=== PATIENT | male | born 1990 | race Caucasian/White ===

== ENCOUNTER → 2018-03-31 13:16 | Outpatient (CLI) | payer BC, SELFPAY ==
--- NOTE | 2018-03-31 13:18 | NM_ITS ---
NM hepatobiliary wo pharm HISTORY: Right upper quadrant pain ITS.REASON: upper quad pain ORDERING PHYSICIAN: Zach Olvera MD PATIENT AGE: 27 years COMPARISON: 03/28/2018 DOSE: 8.17 mCi technetium Choletec IV Fatty meal with ensure FINDINGS: Homogeneous activity is present within the hepatic parenchyma. Activity is present in the gallbladder by 10 minutes. Activity is present in the small bowel by 45 minutes. The gallbladder ejection fraction is calculated to be 23%. No pain reported with the fatty meal IMPRESSION: 1. No evidence of common or cystic duct obstruction. 2. Slightly low gallbladder ejection fraction. Please correlate with patient's symptoms for possible gallbladder dyskinesia
--- NOTE | 2018-03-31 13:33 | HMH.ITSHM ---
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 []OMPERAZOLE
== END ==
PROVIDERS: PCP Internal Medicine; Visit Provider Surgery
DX: K82.9 Disease of gallbladder, unspecified (principal)
CPT/HCPCS: 78226; A9537

== ENCOUNTER → 2018-04-04 15:39 | Outpatient (CLI) | payer BC, SELFPAY ==
[2018-04-04 16:41] LABS: Basophils # 0.1 K/mm3 (0-0.2); Basophils % 1.1 % (0.1-2.0); Eosinophils # 0.6 K/mm3 (0.0-0.4); Hematocrit 44.4 % (42.0-52.0); Hemoglobin 14.4 g/dL (14.1-18.0); Lymphocytes # 2.6 K/mm3 (0.7-4.5); Mean Corpuscular HGB Conc 32.4 g/dL (31.8-35.4); Mean Corpuscular Hemoglobin 28.8 pg (27.0-31.2); Mean Platelet Volume 6.8 fl (7.4-10.4); Monocytes # 0.4 K/mm3 (0.1-1.0); Monocytes % 5.3 % (1.7-9.3); Neutrophils # 4.2 K/mm3 (1.8-7.8); Neutrophils % 52.6 % (37.0-80.0); Platelet Count 296 K/mm3 (142-424); Red Blood Count 4.99 M/mm3 (4.60-6.20); Red Cell Distribution Width 13.3 % (11.5-17.5)
[2018-04-04 16:49] LABS: Alanine Aminotransferase 27 U/L (12-78); Albumin Level 4.1 gm/dL (3.4-5.0); Albumin/Globulin Ratio 1.2 (1.1-1.8); Alkaline Phosphatase 60 U/L (46-116); Anion Gap 14.7 mEq/L (5-15); Aspartate Amino Transferase 9 U/L (15-37); Bilirubin,Total 0.2 mg/dL (0.2-1.0); Blood Urea Nitrogen 10 mg/dL (7-18); Carbon Dioxide 27 mmol/L (21.0-32.0); Chloride 104 mmol/L (98-107); Estimated Glomerular Filt Rate 89 ml/min (>60); GFR (African American) 108 ML/MIN (>60); Globulin 3.4 gm/dl (1.3-3.2); Glucose 92 mg/dL (74-106); Potassium 4.7 mmoL/L (3.5-5.1); Sodium 141 mmol/L (136-145); Total Protein,Serum 7.5 gm/dL (6.4-8.2)
== END ==
PROVIDERS: Visit Provider Surgery
DX: K82.9 Disease of gallbladder, unspecified (principal)
CPT/HCPCS: 80053; 85025

== ENCOUNTER 2021-04-19 19:19 | Emergency (ER) | payer SELFPAY ==
[2021-04-19 19:30] VITALS: BP 134/81; PULSE 102; RESP 18; TEMP 37.1; O2SAT 98; BMI 32.5
[2021-04-19 20:50] LABS: Alanine Aminotransferase 30 U/L (12-78); Albumin Level 4.9 g/dl (3.5-5.0); Albumin/Globulin Ratio 1.5 (1.1-1.8); Alkaline Phosphatase 49 U/L (38-126); Aspartate Amino Transferase 30 U/L (17-59); Bilirubin,Total 0.6 mg/dl (0.2-1.3); Blood Urea Nitrogen 13 mg/dl (9-20); Calcium 9.7 mg/dl (8.4-10.2); Carbon Dioxide 29 mmol/L (22.0-30.0); Chloride 101 mmol/L (98-107); Creatinine Clearance Estimated 151 mL/min (50-200); Estimated Glomerular Filt Rate 87 ml/min (>60); GFR (African American) 105 ML/MIN (>60); Globulin 3.3 g/dL (1.3-3.2); Glucose 95 mg/dl (74-100); Sodium 139 mmol/L (136-145); Total Protein,Serum 8.2 g/dl (6.3-8.2)
[2021-04-19 20:55] LABS: C-Reactive Protein 5.6 mg/L (0-4)
[2021-04-19 21:09] LABS: Basophils # 0.2 K/mm3 (0-0.2); Eosinophils # 0.4 K/mm3 (0.0-0.4); Hematocrit 52.7 % (42.0-52.0); Hemoglobin 16.9 g/dL (14.1-18.0); Lymphocytes # 1.6 K/mm3 (0.7-4.5); Lymphocytes % 10.7 % (10-50); Mean Corpuscular HGB Conc 32.1 g/dL (31.8-35.4); Mean Corpuscular Hemoglobin 29.5 pg (27.0-31.2); Mean Corpuscular Volume 91.8 fl (80-94); Mean Platelet Volume 8.2 fl (7.4-10.4); Monocytes # 0.6 K/mm3 (0.1-1.0); Neutrophils % 81.3 % (37.0-80.0); Platelet Count 286 K/mm3 (142-424); Procalcitonin 0.088 ng/mL (0.0-2.0); Red Blood Count 5.75 M/mm3 (4.60-6.20); Red Cell Distribution Width 13.8 % (11.5-17.5); White Blood Count 14.7 K/mm3 (4.8-10.8)
--- NOTE | 2021-04-19 21:20 | HMH.EDNVD ---
ED Disposition Clinical Impression: Enteritis Disposition: Home, Self-Care Condition on Discharge: Good Instructions: DI for Diarrhea and Traveler's Diarrhea -- Adult Additional Instructions: fluids and see pcp for follow up Prescriptions: ondansetron HCL [Zofran 4mg Tab] 4 mg PO TID #30 tab Transmission Status: Pending to [facility] Referrals: Travis Bagley [Primary Care Provider] - - Critical Care Critical Care Time: No Attestation: On 04/19/21, the high probability of a clinically significant, sudden or life threatening deterioration of the following system(s) required my full and direct attention, intervention and personal management. The time I documented below is in addition to time spent performing reported procedures but includes the following listed in this critical care notation. Medical Decision Making - Medical Records Medical records reviewed: Yes: I reviewed the patient's medical records. - Juan Inquiry Pt receiving controlled substance: No Vital Signs: 04/19/21 19:30 Temperature 98.8 F Temperature Source Oral Pulse Rate [Left] 102 H Respiratory Rate 18 Blood Pressure [Right Arm] 134/81 Blood Pressure Mean [Right Arm] 98 02 Sat by Pulse Oximetry 98 Oxygen Delivery Method Room Air - Lab Data Lab results reviewed: Yes: I reviewed the patient's lab results. Lab Results 04/19/21 19:29: WBC 14.7 H, RBC 5.75, Hgb 16.9, Hct 52.7 H, MCV 91.8, MCH 29.5, MCHC 32.1, RDW 13.8, Plt Count 286, MPV 8.2, Neut % (Auto) 81.3 H, Lymph % (Auto) 10.7, [place] % (Auto) 4.0, Eos % (Auto) 3.0, Baso % (Auto) 1.0, Neut # (Auto) 12.0 H, Lymph # (Auto) 1.6, [place] # (Auto) 0.6, Eos # (Auto) 0.4, Baso # (Auto) 0.2, ESR 4 04/19/21 19:29: Sodium 139, Potassium 4.0, Chloride 101, Carbon Dioxide 29, Anion Gap 13.0, BUN 13, Creatinine 1.00, Estimated Creat Clear 151, Estimated GFR 87, Est GFR ( Amer) 105, Glucose 95, Calcium 9.7, Total Bilirubin 0.6, AST 30, ALT 30, Alkaline Phosphatase 49, C-Reactive Protein 5.6 H, Total Protein 8.2, Albumin 4.9, Globulin 3.3 H, Albumin/Globulin Ratio 1.5, Procalcitonin 0.088 Result diagrams: 04/19/21 19:29 04/19/21 19:29 Orders (Tests/Meds): ED MEDICATIONS Generic Name Dose Route Start Last Admin Trade Name Freq PRN Reason Stop Dose Admin Lactated Ringer's 1,000 mls @ 999 mls/hr 04/19/21 19:30 04/19/21 19:39 Lactated Ringer's 1000 Ml Bag IV 04/19/21 20:30 999 mls/hr .Q1H1M RUBENS Administration Lactated Ringer's 1,000 mls @ 999 mls/hr 04/19/21 21:00 Lactated Ringer's 1000 Ml Bag IV 04/19/21 22:00 .Q1H1M RUBENS Discontinued Medications Generic Name Dose Route Start Last Admin Trade Name Freq PRN Reason Stop Dose Admin Dicyclomine HCl 20 mg 04/19/21 20:47 04/19/21 20:51 Dicyclomine 10mg Capsule PO 04/19/21 20:48 20 mg ONCE ONE Administration Morphine Sulfate 4 mg 04/19/21 20:47 04/19/21 20:51 Morphine 4mg/Ml Syringe IV 04/19/21 20:48 4 mg ONCE ONE Administration Ondansetron HCl 4 mg 04/19/21 19:29 04/19/21 19:39 Ondansetron 4mg/2ml Vial IV 04/19/21 19:30 4 mg ONCE ONE Administration Promethazine HCl 25 mg 04/19/21 20:55 04/19/21 20:58 Promethazine Hcl 25mg/Ml 1ml Vial IV 04/19/21 20:56 25 mg ONCE ONE Administration Sodium Chloride 25 ml 04/19/21 20:55 04/19/21 20:58 Sodium Chloride 0.9% 25ml Bag IV 04/19/21 20:56 25 ml ONCE ONE Administration Medical Decision Narrative: has acute enteritis with stable exam and labs Nausea/Vomiting/Diarrhea HPI - General Chief complaint: Nausea/Vomiting/Diarrhea Stated complaint: nausea,vomiting Time Seen by Provider: 04/19/21 20:00 Mode of Arrival: Ambulatory Source of Information: Patient, Medical Record Limitations: No Limitations Description of Symptoms (Recalled from ER Triage Doc. by RN): n/v weak has noro - History of Present Illness HPI Narrative: has crampy abd pain with nonbldy diarrhea with known exposure to n
[2021-04-19 21:50] LABS: Erythrocyte Sedimentation Rate 4 mm/hr (0-15)
[2021-04-19 22:40] VITALS: BP 125/78; PULSE 81; RESP 16; TEMP 36.9; O2SAT 96
== END 2021-04-19 22:42 | disposition home or self-care (01) ==
PROVIDERS: Emergency Provider Emergency Medicine; PCP Internal Medicine
DX: K52.9 Noninfective gastroenteritis and colitis, unspecified (principal); F17.210 Nicotine dependence, cigarettes, uncomplicated
CPT/HCPCS: 80053; 84145; 85025; 85651; 86140; 96365; 96366; 96375; 99282; J2405

== ENCOUNTER 2021-08-15 09:36 | Emergency (ER) | payer OTHER, SELFPAY ==
[2021-08-15 09:50] VITALS: BP 154/91; PULSE 104; RESP 16; TEMP 36.8; O2SAT 99; BMI 73.2
--- NOTE | 2021-08-15 09:50 | XR_ITS ---
FINAL REPORT CLINICAL HISTORY: pain FINDINGS: THORACIC SPINE Three views were obtained. There is no acute fracture. There is no malalignment. There are mild degenerative changes with small osteophytes. There is no soft tissue abnormality. IMPRESSION: Mild degenerative change. Reviewed, Interpreted and Dictated by Zach Samayoa III, MD Transcribed by Lorri Ryan Authenticated by Zach Samayoa III, MD on 08/15/2021 11:25:27 AM [facility]
--- NOTE | 2021-08-15 09:50 | XR_ITS ---
FINAL REPORT CLINICAL HISTORY: pain FINDINGS: LUMBAR SPINE 5 views of the lumbar spine were obtained. There is no evidence of fracture or dislocation. The vertebral alignment is normal. There is mild chronic wedging of L1. No paraspinous soft tissue abnormalities identified. IMPRESSION: No acute bony abnormality. Reviewed, Interpreted and Dictated by Zach Samayoa III, MD Transcribed by Lorri Ryan Authenticated by Zach Samayoa III, MD on 08/15/2021 11:25:31 AM [facility]
--- NOTE | 2021-08-15 10:02 | HMH.EDUTC ---
[facility] [place] Disposition Clinical Impression: Neck pain Thoracic back pain Qualifiers: Chronicity: acute Back pain laterality: bilateral Qualified Code(s): M54.6 - Pain in thoracic spine Disposition: Home, Self-Care Condition on Discharge: Good Instructions: DI for Neck Pain, Thoracic Back Pain Additional Instructions: Go home and rest. It would be best if you rested tomorrow too. No heavy lifting. No twisting. Take the oral medications as directed. The muscle relaxer (cyclobenzaprine--Flexeril) will make you drowsy, so don't drive or operate heavy machinery after taking it. Don't start the oral steroids (medrol dose pack) until tomorrow, since you had the shots in here today. Follow up with your regular doctor. GO TO THE ER FOR ANY WORSENING SYMPTOMS OR CONCERN, ESPECIALLY BOWEL OR BLADDER ISSUES, SADDLE AREA NUMBNESS, FEVER, ETC Prescriptions: Cyclobenzaprine HCl [Cyclobenzaprine 10mg Tab] 10 mg PO BIDP PRN #20 tab PRN Reason: Muscle Spasm Transmission Status: Received by [facility] Referrals: Travis Bagley [Primary Care Provider] - Forms: Work/School Release Time of Disposition: 10:52 Medical Decision Making - Medical Records Medical records reviewed: No: I reviewed the patient's medical records. - Juan Inquiry Pt receiving controlled substance: No Vital Signs: 08/15/21 09:50 08/15/21 10:53 Temperature 98.2 F 98.2 F Temperature Source Oral Pulse Rate 104 H Pulse Rate [Left] 104 H Respiratory Rate 16 16 Blood Pressure 154/91 H Blood Pressure [Right Arm] 154/91 H Blood Pressure Mean [Right Arm] 112 02 Sat by Pulse Oximetry 99 Orders (Tests/Meds): ED MEDICATIONS Discontinued Medications Generic Name Dose Route Start Last Admin Trade Name Freq PRN Reason Stop Dose Admin Ketorolac Tromethamine 30 mg 08/15/21 10:36 08/15/21 10:42 Ketorolac 60mg/2ml Vial IM 08/15/21 10:37 30 mg ONCE ONE Administration Methylprednisolone Sodium Succinate 125 mg 08/15/21 10:20 08/15/21 10:42 Methylprednisolone Sod Succ 125mg Vial IM 08/15/21 10:21 125 mg ONCE ONE Administration [facility] [place] HPI - General Stated complaint: back pain, no accident Time Seen by Provider: 08/15/21 10:02 Mode of Arrival: Ambulatory Source of Information: Patient Limitations: No Limitations Description of Symptoms (Recalled from Triage Doc. by RN): pt states that he bent over to pick something up on saturday08/12/21 and hurt his back. when it first happened he could not put arms down to his side. when he lowers his head he has alot of pain. it is located in the upper part of the middle back. still having back pain today HEENT Symptoms (Recalled from RN notes): No Resp Symptoms (Recalled from RN notes): No Skin Symptoms (Recalled from RN notes): No MS Symptoms (Recalled from RN notes): Yes Functional Status (Recalled from RN notes): wnl - History of Present Illness Provider Complaint: He c/o upper back pain and neck pain since earlier this morning. He denies any injury, recent fall or mva. - Related Data Home Medications Medication Instructions Recorded Confirmed Omeprazole [Omeprazole 40mg 40 mg PO DAILY 03/28/18 08/15/21 Capsule] methylPREDNISolone [Medrol] 4 mg PO DIRECTED 08/15/21 08/15/21 Previous Rx's Medication Instructions Recorded Cyclobenzaprine HCl 10 mg PO BIDP PRN #20 tab 08/15/21 [Cyclobenzaprine 10mg Tab] Allergies Allergy/AdvReac Type Severity Reaction Status Date / Time No Known Allergies Allergy Verified 08/15/21 09:56 - Worker's Comp Is this a Worker's Comp case?: No Is this an H Worker's Comp?: No Is this a [place] Worker's Comp?: No [facility] History - Hepatitis A Screen Drug use history?: No High risk sexual behaviors?: No History of sexually transmitted infection?: No Currently employed?: No Childcare worker?: No Do you have indoor plumbing?: No Do you have electricity?: No Attestation statement:: This julienne
--- NOTE | 2021-08-15 10:03 | XR_ITS ---
FINAL REPORT CLINICAL HISTORY: neck pain, upper back pain FINDINGS: CERVICAL SPINE Four views were obtained. There is no acute fracture. There is no malalignment. There is straightening of the normal cervical curvature which could be due to positioning or muscle spasm. The disc spaces are preserved. There is no soft tissue abnormality. IMPRESSION: No acute bony abnormality. Reviewed, Interpreted and Dictated by Zach Samayoa III, MD Transcribed by Lorri Ryan Authenticated by Zach Samayoa III, MD on 08/15/2021 11:25:28 AM [facility]
[2021-08-15 10:53] VITALS: BP 154/91; PULSE 104; RESP 16; TEMP 36.8
== END 2021-08-15 10:57 | disposition home or self-care (01) ==
PROVIDERS: Emergency Provider Nurse Practitioner Family; PCP Internal Medicine
DX: M54.6 Pain in thoracic spine (principal); M54.2 Cervicalgia; K21.9 Gastro-esophageal reflux disease without esophagitis; F17.210 Nicotine dependence, cigarettes, uncomplicated
CPT/HCPCS: 72050; 72070; 72110; 96372; 99213; G0463

== ENCOUNTER 2021-08-15 20:13 | Emergency (ER) | payer OTHER, SELFPAY ==
[2021-08-15 20:14] VITALS: BP 156/79; PULSE 118; RESP 18; TEMP 37.1; O2SAT 98; BMI 33.2
--- NOTE | 2021-08-15 20:29 | PC.NURSE ---
DR. ABBASI MADE AWARE OF EXTREME PAIN AND REQUEST FOR PAIN MEDICATIONS. MD SAYS HE WILL SEE PATIENT AND MAKE DECISION.
--- NOTE | 2021-08-15 20:30 | HMH.EDBACK ---
ED Disposition Clinical Impression: Lumbar radiculopathy Acute thoracic back pain Qualifiers: Back pain laterality: bilateral Qualified Code(s): M54.6 - Pain in thoracic spine Acute cervical myofascial strain Qualifiers: Encounter type: initial encounter Qualified Code(s): S16.1XXA - Strain of muscle, fascia and tendon at neck level, initial encounter Disposition: Home, Self-Care Condition on Discharge: Good Instructions: DI for Low Back Pain Additional Instructions: use nmeds and see pcp for follow up Referrals: Travis Bagley [Primary Care Provider] - - Critical Care Critical Care Time: No Attestation: On 08/15/21, the high probability of a clinically significant, sudden or life threatening deterioration of the following system(s) required my full and direct attention, intervention and personal management. The time I documented below is in addition to time spent performing reported procedures but includes the following listed in this critical care notation. Medical Decision Making - Medical Records Medical records reviewed: Yes: I reviewed the patient's medical records. - Juan Inquiry Pt receiving controlled substance: No Vital Signs: 08/15/21 20:14 Temperature 98.8 F Temperature Source Oral Pulse Rate [Left Radial] 118 H Respiratory Rate 18 Blood Pressure [Right Arm] 156/79 H Blood Pressure Mean [Right Arm] 104 Blood Pressure Position [Right Arm] Standing 02 Sat by Pulse Oximetry 98 Oxygen Delivery Method Room Air - Lab Data Lab results reviewed: Yes: I reviewed the patient's lab results. Lab Results 08/15/21 20:49: WBC 8.7, RBC 5.42, Hgb 15.8, Hct 49.3, MCV 91.0, MCH 29.2, MCHC 32.1, RDW 14.3, Plt Count 309, MPV 7.4, Neut % (Auto) 88.6 H, Lymph % (Auto) 8.7 L, [place] % (Auto) 1.0 L, Eos % (Auto) 1.1, Baso % (Auto) 0.5, Neut # (Auto) 7.7, Lymph # (Auto) 0.8, [place] # (Auto) 0.1, Eos # (Auto) 0.1, Baso # (Auto) 0.0, Total Counted 100, Neutrophils % (Manual) 89 H, Lymphocytes % (Manual) 9 L, Monocytes % (Manual) 1 L, Eosinophils % (Manual) 1, Platelet Estimate Normal, RBC Morphology Normal, ESR 3 08/15/21 20:49: Sodium 140, Potassium 3.5, Chloride 110 H, Carbon Dioxide 20 L, Anion Gap 13.5, BUN 10, Creatinine 0.90, Estimated Creat Clear 172, Estimated GFR 98, Est GFR ( Amer) 119, Glucose 253 H, Calcium 9.3, Total Bilirubin 0.5, AST 29, ALT 37, Alkaline Phosphatase 51, C-Reactive Protein 4.2 H, Total Protein 7.3, Albumin 4.5, Globulin 2.8, Albumin/Globulin Ratio 1.6, Procalcitonin 0.032 Result diagrams: 08/15/21 20:49 08/15/21 20:49 Orders (Tests/Meds): ED MEDICATIONS Generic Name Dose Route Start Last Admin Trade Name Freq PRN Reason Stop Dose Admin Sodium Chloride 500 mls @ 999 mls/hr 08/15/21 21:00 08/15/21 21:43 Sod Chlor 0.9% 1000ml Bag IV 08/15/21 21:30 Not Given .Q31M RUBENS Discontinued Medications Generic Name Dose Route Start Last Admin Trade Name Freq PRN Reason Stop Dose Admin Hydromorphone HCl 1 mg 08/15/21 20:50 08/15/21 21:42 Hydromorphone 2mg/Ml Syringe IV 08/15/21 20:51 1 mg ONCE ONE Administration Iopamidol 140 ml 08/15/21 21:03 08/15/21 21:04 Iopamidol-370 (76%);100ml Bottle IV 08/15/21 21:04 140 ml ONCE ONE Administration Ketorolac Tromethamine 30 mg 08/15/21 20:49 08/15/21 21:42 Ketorolac 30mg/Ml Vial IV 08/15/21 20:50 30 mg ONCE ONE Administration Methylprednisolone Sodium Succinate 125 mg 08/15/21 20:50 08/15/21 21:42 Methylprednisolone Sod Succ 125mg Vial IV 08/15/21 20:51 125 mg ONCE ONE Administration Ondansetron HCl 4 mg 08/15/21 20:50 08/15/21 21:42 Ondansetron 4mg/2ml Vial IV 08/15/21 20:51 4 mg ONCE ONE Administration Sodium Chloride 10 ml 08/15/21 21:03 08/15/21 21:04 Sodium Chloride 0.9% 10ml Syr (Rad Only) IV 08/15/21 21:04 10 ml ONCE ONE Administration ORDERS Category Date Time Status Hemoglobin A1C Stat Lab 08/15/21 20:49 Received - CT Data CT Scan
--- NOTE | 2021-08-15 20:34 | CT_ITS ---
PROCEDURE INFORMATION: Exam: CT Cervical Spine With Contrast Exam date and time: 08/15/2021 8:40 PM Age: 30 years old Clinical indication: Neck pain; Additional info: Injury TECHNIQUE: Imaging protocol: Computed tomography images of the cervical spine with intravenous contrast. Radiation optimization: All CT scans at this facility use at least one of these dose optimization techniques: automated exposure control; mA and/or kV adjustment per patient size (includes targeted exams where dose is matched to clinical indication); or iterative reconstruction. Contrast material: ISOVUE; Contrast volume: 70 ml; Contrast route: IV; COMPARISON: CR XR CERVICAL SPINE 4V 08/15/2021 10:03 AM FINDINGS: Bones/joints: Straightening of the curvature of the cervical spine is likely positional. Discs/Spinal canal/Neural foramina: No significant disc protrusion. No severe spinal canal stenosis. No significant neural foraminal narrowing. Lungs: Lung apices are normal. Soft tissues: Unremarkable. IMPRESSION: No acute fracture or malalignment of the cervical spine.
--- NOTE | 2021-08-15 20:34 | CT_ITS ---
PROCEDURE INFORMATION: Exam: CT Lumbar Spine With Contrast Exam date and time: 08/15/2021 8:55 PM Age: 30 years old Clinical indication: Low back pain; Additional info: Injury TECHNIQUE: Imaging protocol: Computed tomography images of the lumbar spine with intravenous contrast. Radiation optimization: All CT scans at this facility use at least one of these dose optimization techniques: automated exposure control; mA and/or kV adjustment per patient size (includes targeted exams where dose is matched to clinical indication); or iterative reconstruction. Contrast material: ISOVUE; Contrast volume: 70 ml; Contrast route: IV; COMPARISON: CR XR LUMBAR SPINE MIN 4V 08/15/2021 10:09 AM FINDINGS: Vertebrae: No acute fracture. Normal alignment. Discs/Spinal canal/Neural foramina: No significant disc protrusion. No severe spinal canal stenosis. No significant neural foraminal narrowing. Gallbladder and bile ducts: Gallbladder is absent. Soft tissues: Unremarkable. IMPRESSION: No acute fracture or malalignment of the lumbar spine.
--- NOTE | 2021-08-15 20:34 | CT_ITS ---
PROCEDURE INFORMATION: Exam: CT Thoracic Spine With Contrast Exam date and time: 08/15/2021 8:40 PM Age: 30 years old Clinical indication: Pain in thoracic spine; Additional info: Injury TECHNIQUE: Imaging protocol: Computed tomography images of the thoracic spine with intravenous contrast. Radiation optimization: All CT scans at this facility use at least one of these dose optimization techniques: automated exposure control; mA and/or kV adjustment per patient size (includes targeted exams where dose is matched to clinical indication); or iterative reconstruction. Contrast material: ISOVUE; Contrast volume: 70 ml; Contrast route: IV; COMPARISON: CR XR THORACIC SPINE 2V 08/15/2021 10:08 AM FINDINGS: Vertebrae: No acute fracture. Normal alignment. Discs/Spinal canal/Neural foramina: No significant disc protrusion. No severe spinal canal stenosis. No significant neural foraminal narrowing. Soft tissues: Unremarkable. Lungs: Patchy posterior atelectasis. Mediastinum: Stigmata of old granulomatous disease. IMPRESSION: No acute fracture or malalignment of the thoracic spine.
[2021-08-15 21:00] LABS: Basophils % 0.5 % (0.1-2.0); Eosinophils # 0.1 K/mm3 (0.0-0.4); Eosinophils % 1.1 % (0.1-12.0); Hematocrit 49.3 % (42.0-52.0); Hemoglobin 15.8 g/dL (14.1-18.0); Lymphocytes # 0.8 K/mm3 (0.7-4.5); Lymphocytes % 8.7 % (10-50); Mean Corpuscular HGB Conc 32.1 g/dL (31.8-35.4); Mean Corpuscular Hemoglobin 29.2 pg (27.0-31.2); Mean Platelet Volume 7.4 fl (7.4-10.4); Monocytes # 0.1 K/mm3 (0.1-1.0); Neutrophils # 7.7 K/mm3 (1.8-7.8); Neutrophils % 88.6 % (37.0-80.0); Platelet Count 309 K/mm3 (142-424); Red Blood Count 5.42 M/mm3 (4.60-6.20); Red Cell Distribution Width 14.3 % (11.5-17.5); White Blood Count 8.7 K/mm3 (4.8-10.8)
[2021-08-15 21:02] LABS: MANUAL DIFFERENTIAL MANUAL DIFFERENTIAL (MANUAL DIFF)
[2021-08-15 21:04] LABS: Alanine Aminotransferase 37 U/L (12-78); Albumin Level 4.5 g/dl (3.5-5.0); Albumin/Globulin Ratio 1.6 (1.1-1.8); Alkaline Phosphatase 51 U/L (38-126); Anion Gap 13.5 mEq/L (5-15); Aspartate Amino Transferase 29 U/L (17-59); Bilirubin,Total 0.5 mg/dl (0.2-1.3); Blood Urea Nitrogen 10 mg/dl (9-20); Calcium 9.3 mg/dl (8.4-10.2); Carbon Dioxide 20 mmol/L (22.0-30.0); Chloride 110 mmol/L (98-107); Creatinine Clearance Estimated 172 mL/min (50-200); Estimated Glomerular Filt Rate 98 ml/min (>60); GFR (African American) 119 ML/MIN (>60); Globulin 2.8 g/dL (1.3-3.2); Glucose 253 mg/dl (74-100); Potassium 3.5 mmoL/L (3.5-5.1); Sodium 140 mmol/L (136-145); Total Protein,Serum 7.3 g/dl (6.3-8.2)
[2021-08-15 21:10] LABS: C-Reactive Protein 4.2 mg/L (0-4)
[2021-08-15 21:23] LABS: Procalcitonin 0.032 ng/mL (0.0-2.0)
[2021-08-15 21:32] LABS: Erythrocyte Sedimentation Rate 3 mm/hr (0-15)
[2021-08-15 21:38] LABS: Eosinophils % 1 % (0-3); Lymphocytes % 9 % (10-50); Monocytes % 1 % (2-9); Neutrophils % 89 % (42-76); Platelet Estimate Normal; RBC Morphology Normal; Total Cells Counted 100
[2021-08-15 22:12] LABS: Hemoglobin A1C 5.6 % (4.0-6.0)
[2021-08-15 22:27] VITALS: BP 129/77; PULSE 90; RESP 16; TEMP 37.1; O2SAT 94
== END 2021-08-15 22:32 | disposition home or self-care (01) ==
PROVIDERS: Emergency Provider Emergency Medicine; PCP Internal Medicine
DX: M54.16 Radiculopathy, lumbar region (principal); M54.6 Pain in thoracic spine; S16.1XXA Strain of muscle, fascia and tendon at neck level, initial encounter; F17.210 Nicotine dependence, cigarettes, uncomplicated; K21.9 Gastro-esophageal reflux disease without esophagitis
CPT/HCPCS: 72126; 72129; 72132; 80053; 83036; 84145; 85007; 85025; 85651; 86140; 96374; 96375; 96376; 99284; J2405; Q9967

== ENCOUNTER 2023-05-25 12:43 | Emergency (ER) | payer OTHER, SELFPAY ==
[2023-05-25 12:50] VITALS: BP 121/70; PULSE 69; RESP 18; TEMP 37.1; O2SAT 100
--- NOTE | 2023-05-25 13:08 | ED_ITS ---
Discharge Plan Disposition Patient Disposition: Home, Self-Care Condition: Good Prescriptions Prescriptions: New amoxicillin [amoxicillin] 500 mg tablet 500 mg PO BID 10 Days Qty: 20 0RF No Action omeprazole 40 mg capsule,delayed release(DR/EC) See Rx Instructions .ROUTE .COMPLEX Qty: 90 0RF Dose Instruction: TAKE 1 CAPSULE BY MOUTH DAILY FOR GERD Rx Instructions: TAKE 1 CAPSULE BY MOUTH DAILY FOR GERD Referrals Follow up/Referrals: Vinod Santoyo DO [Primary Care Provider] - See instructions Activity Restrictions/Add. Instructions Additional Instructions/Restrictions: Start antibiotic as soon as possible and be sure to take as ordered for full length of time even though he should start feeling better in 24-48 hours. Tylenol or Motrin as needed for pain or fever Encourage fluids, water, Gatorade, Powerade, Pedialyte if /toddler/child Warm compresses often helps when placed over ear Return immediately for new or worsening symptoms no noticeable improvement in 48-72 hours and in 10-14 days to ensure the ears are return to baseline. Follow-up with primary care Clinical Impressions Clinical Impression: Otitis media Qualifiers: Otitis media type: suppurative Chronicity: acute Laterality: right Recurrence: non-recurrent Spontaneous tympanic membrane rupture: without spontaneous rupture Qualified Code(s): H66.001 - Acute suppurative otitis media without spontaneous rupture of ear drum, right ear Instructions Patient Instructions: Middle Ear Infection Discharge ED Provider: Tania ([facility] [place] General Stated complaint: Right earache Mode of Arrival: Ambulatory Source of Information: Patient Limitations: No Limitations Time Seen by Provider: 05/25/23 13:08 Description of Symptoms (Recalled from Triage Doc. by RN): Right ear pain HEENT Symptoms (Recalled from RN notes): Yes Resp Symptoms (Recalled from RN notes): No Skin Symptoms (Recalled from RN notes): No MS Symptoms (Recalled from RN notes): No Functional Status (Recalled from RN notes): n/a History of Present Illness Provider Complaint: 32 yr old male presents for rt ear pain Related Data Previous Rx's Medication Instructions Recorded omeprazole 40 mg capsule,delayed See Rx Instructions .Route 04/01/23 release .COMPLEX #90 caps amoxicillin 500 mg tablet 500 mg PO BID 10 days #20 tabs 05/25/23 Allergies Allergy/AdvReac Type Severity Reaction Status Date / Time No Known Allergies Allergy Verified 05/25/23 13:04 Worker's Comp Is this a Worker's Comp case?: No [facility] Dis[facility]: The information contained in this section may have been updated after the patient was seen, as this information can be updated by other users. 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 current occupational exposures/hazards: No caffeine: Yes ROS Obtained: Yes All systems reviewed & no additional complaints except as documented Constitutional Constitutional: Reports system reviewed and no additional complaints, except as documented Eyes Eyes: Reports system reviewed and no additional complaints, except as documented ENT Ears, Nose, Mouth, and Throat: Reports system reviewed and no additional complaints, except as documented, Reports as per HPI and Reports otalgia Cardiovascular Cardiovascular: Reports system reviewed and no additional complaints, except as documented Gastrointestinal Gastrointestingal: Reports system reviewed and no additional complaints, except as documented Integumentary/Breasts Skin/Breast: Reports system reviewed and no additional complaints, except as documented Endocrine Endocrine: Reports system reviewed and no additional complaints, except as documented Hematologic/Lymphatic Henatologic/Lymphatic: Reports system reviewed and no additional complaints, except as documented Physical Exam General General appearance: alert and in no apparent distress Head Head exam: atraumatic Eye Eye exam: Present normal appearance and PERRL ENT ENT exam: Present normal oropharynx and mucous membranes moist Expanded ENT Exam TM/Canal exam: Right TM: erythema, bulging and loss of landmarks Respiratory Respiratory exam: Present normal lung sounds bilaterally Cardiovascular Cardiovascular exam: Present regular rate and normal rhythm Neurological Exam Neurological exam: Present alert and oriented X3 Medical Decision Making Juan Inquiry Pt receiving controlled substance: No Juan was queried for this patient: No Vital Signs: 05/25/23 12:50 Temperature 98.7 F Temperature Source Oral Pulse Rate [Right Radial] 69 Respiratory Rate 18 Blood Pressure [Right Arm] 121/70 Blood Pressure Mean [Right Arm] 87 Blood Pressure Source [Right Arm] Automatic Cuff Blood Pressure Position [Right Arm] Sitting 02 Sat by Pulse Oximetry 100 Oxygen Delivery Method Room Air
[2023-05-25 13:13] VITALS: BP 121/70; PULSE 69; RESP 18; TEMP 37.1; O2SAT 100
== END 2023-05-25 13:13 | disposition home or self-care (01) ==
PROVIDERS: Emergency Provider Nurse Practitioner Family; PCP Internal Medicine
DX: H66.001 Acute suppurative otitis media without spontaneous rupture of ear drum, right ear (principal); F17.210 Nicotine dependence, cigarettes, uncomplicated
CPT/HCPCS: 99212; 99214; G0463

== ENCOUNTER 2023-06-10 18:35 | Emergency (ER) | payer OTHER, SELFPAY ==
[2023-06-10 19:55] VITALS: BP 113/76; PULSE 76; RESP 20; TEMP 36.8; O2SAT 99; BMI 30.8
--- NOTE | 2023-06-10 20:11 | EXP.UTC ---
Discharge Plan Disposition Patient Disposition: Home, Self-Care Condition: Good Prescriptions Prescriptions: New amoxicillin-pot clavulanate 875-125 mg Tablet 1 tab PO Q12H Qty: 20 0RF fluticasone propionate [Flonase Allergy Relief] 50 mcg/actuation spray,suspension 2 spray intranasal DAILY Qty: 16 0RF Rx Instructions: administer into each nostril daily methylprednisolone [Medrol (Jaleel)] 4 mg tablets,dose pack See Rx Instructions .Route .COMPLEX 6 Days Qty: 21 0RF Rx Instructions: taper pack; No Action omeprazole 40 mg capsule,delayed release(DR/EC) See Rx Instructions .ROUTE .COMPLEX Qty: 90 0RF Dose Instruction: TAKE 1 CAPSULE BY MOUTH DAILY FOR GERD Rx Instructions: TAKE 1 CAPSULE BY MOUTH DAILY FOR GERD Referrals Follow up/Referrals: Vinod Santoyo DO [Primary Care Provider] - See instructions Activity Restrictions/Add. Instructions Additional Instructions/Restrictions: Take medication as prescribed Follow up with your Family Doctor if no improvement or any worsening of symptoms Return if needed Straight to ER if any life threatening symptoms Clinical Impressions Clinical Impression: Otitis media Qualifiers: Otitis media type: unspecified Laterality: right Qualified Code(s): H66.91 - Otitis media, unspecified, right ear Instructions Patient Instructions: Middle Ear Infection, Amoxicillin and Clavulanic Acid Discharge ED Provider: Sayda Ryder [facility] General Stated complaint: poss ear inf Mode of Arrival: Ambulatory Source of Information: Patient Limitations: No Limitations Time Seen by Provider: 06/10/23 20:11 Description of Symptoms (Recalled from Triage Doc. by RN): PATIENT C/O RIGHT EAR PAIN X 2 DAYS HEENT Symptoms (Recalled from RN notes): Yes Resp Symptoms (Recalled from RN notes): No Skin Symptoms (Recalled from RN notes): No MS Symptoms (Recalled from RN notes): No Functional Status (Recalled from RN notes): WNL History of Present Illness Provider Complaint: Patient states that he was seen and treated for ear infection a couple weeks ago States that he finished the antibiotics and it got a little better but has since come back and worse States that feels like his ear is full of fluid and having pressure like he cannot hear well so he came back in to get it checked Related Data Previous Rx's Medication Instructions Recorded omeprazole 40 mg capsule,delayed See Rx Instructions .Route 04/01/23 release .COMPLEX #90 caps amoxicillin 875 mg-potassium 1 tab PO Q12H #20 tabs 06/10/23 clavulanate 125 mg tablet fluticasone propionate 50 2 spray intranasal DAILY #16 grams 06/10/23 mcg/actuation nasal spray,suspension (Flonase Allergy Relief) methylprednisolone 4 mg tablets in See Rx Instructions .Route 06/10/23 a dose pack (Medrol (Jaleel)) .COMPLEX 6 days #21 tabs Allergies Allergy/AdvReac Type Severity Reaction Status Date / Time No Known Allergies Allergy Verified 05/25/23 13:04 Worker's Comp Is this a Worker's Comp case?: No [facility] Disclaimer: The information contained in this section may have been updated after the patient was seen, as this information can be updated by other users. Social History , [employer]) Smoking Status: Current every day smoker tobacco type: cigarettes packs per day: 1 second hand exposure: Yes alcohol intake: never substance use type: denies use current occupational status: employed Travel in the last 8 weeks: None household members: significant other housing: house current occupation: [employer] current occupational exposures/hazards: No caffeine: Yes ROS Obtained: Yes All systems reviewed & no additional complaints except as documented and Yes Systems reviewed as appropriate & no additional complaints except as documented Constitutional Constitutional: Reports system reviewed and no additional complaints, except as documented and Reports as per HPI ENT Ears, Nose, Mouth, and Throat: Reports system reviewed and no additional complaints, except as documented, Reports as per HPI and Reports otalgia Cardiovascular Cardiovascular: Reports system reviewed and no additional complaints, except as documented and Reports as per HPI Respiratory Respiratory: Reports system reviewed and no additional complaints, except as documented and Reports as per HPI Gastrointestinal Gastrointestingal: Reports system reviewed and no additional complaints, except as documented and as per HPI Physical Exam General General appearance: alert and in no apparent distress ENT ENT exam: Present mucous membranes moist Expanded ENT Exam TM/Canal exam: Right TM: erythema and bulging Respiratory Respiratory exam: Present normal lung sounds bilaterally; Absent respiratory distress or wheezes Cardiovascular Cardiovascular exam: Present regular rate, normal rhythm and normal heart sounds Abdominal Exam Abdominal exam: Present soft and normal bowel sounds; Absent distention or tenderness Neurological Exam Neurological exam: Present alert, oriented X3 and normal gait Medical Decision Making Juan Inquiry Pt receiving controlled substance: No Juan was queried for this patient: No Vital Signs: 06/10/23 19:55 Temperature 98.3 F Temperature Source Oral Pulse Rate [Left Brachial] 76 Respiratory Rate 20 Blood Pressure [Left Arm] 113/76 Blood Pressure Mean [Left Arm] 88 Blood Pressure Source [Left Arm] Automatic Cuff Blood Pressure Position [Left Arm] Sitting 02 Sat by Pulse Oximetry 99 Oxygen Delivery Method Room Air
[2023-06-10 20:20] VITALS: BP 113/76; PULSE 76; RESP 20; TEMP 36.8; O2SAT 99
== END 2023-06-10 20:22 | disposition home or self-care (01) ==
PROVIDERS: Emergency Provider Nurse Practitioner; PCP Internal Medicine
DX: H66.91 Otitis media, unspecified, right ear (principal); F17.210 Nicotine dependence, cigarettes, uncomplicated
CPT/HCPCS: 99212; 99214; G0463

== ENCOUNTER 2024-03-18 13:17 | Emergency (ER) | payer OTHER, SELFPAY ==
[2024-03-18 13:50] VITALS: BP 116/67; PULSE 107; RESP 17; TEMP 37.8; O2SAT 100; BMI 32.3
[2024-03-18 14:05] LABS: UTC Influenza A Antigen Positive (Negative); UTC Influenza B Antigen Negative (Negative)
--- NOTE | 2024-03-18 14:11 | EXP.UTC ---
Discharge Plan Disposition Patient Disposition: Home, Self-Care Condition: Good Prescriptions Prescriptions: New oseltamivir [Tamiflu] 75 mg capsule 75 mg PO BID Qty: 10 0RF [id number] [Bromfed DM] 2-30-10 mg/5 mL Syrup 5 ml PO Q6H PRN (Reason: Cough) Qty: 240 0RF ondansetron 4 mg Tablet,Disintegrating 4 mg PO Q8H PRN (Reason: Nausea) Qty: 12 0RF No Action omeprazole 40 mg capsule,delayed release(DR/EC) See Rx Instructions .ROUTE .COMPLEX Qty: 90 0RF Dose Instruction: TAKE 1 CAPSULE BY MOUTH ONCE DAILY FOR GERD Rx Instructions: TAKE 1 CAPSULE BY MOUTH ONCE DAILY FOR GERD Referrals Follow up/Referrals: Vinod Santoyo DO [Primary Care Provider] - See instructions Activity Restrictions/Add. Instructions Additional Instructions/Restrictions: Drink plenty of fluids. Take tylenol or ibuprofen for pain or fever. Take the medications as directed. Follow up with your regular doctor. GO TO THE ER FOR ANY WORSENING SYMPTOMS Clinical Impressions Clinical Impression: Influenza A Stand Alone Forms Stand Alone Forms: Work/School Release Instructions Patient Instructions: DI for Influenza -- Adult, Ondansetron, Oseltamivir Print Language Print Language: Sudanese Discharge ED Provider: Constantino Coello [facility] General Stated complaint: chills, cough, body aches Mode of Arrival: Ambulatory Source of Information: Patient Limitations: No Limitations Time Seen by Provider: 03/18/24 14:11 Description of Symptoms (Recalled from Triage Doc. by RN): PATIENT C/O CHILLS, BODY ACHES, COUGH, CONGESTION, AND EAR PAIN SINCE YESTERDAY HEENT Symptoms (Recalled from RN notes): Yes Resp Symptoms (Recalled from RN notes): Yes Skin Symptoms (Recalled from RN notes): No MS Symptoms (Recalled from RN notes): No Functional Status (Recalled from RN notes): WNL Related Data Previous Rx's ?Medication ?Instructions ?Recorded [id number]-khdtgupuwjfsumu-YM 5 ml PO Q6H PRN Cough #240 mL 03/18/24 2 mg-30 mg-10 mg/5 mL oral syrup (Bromfed DM) ondansetron 4 mg disintegrating 4 mg PO Q8H PRN Nausea #12 tabs 03/18/24 tablet oseltamivir 75 mg capsule (Tamiflu) 75 mg PO BID #10 caps 03/18/24 omeprazole 40 mg capsule,delayed See Rx Instructions .Route 03/19/24 release .COMPLEX #90 caps Allergies Allergy/AdvReac Type Severity Reaction Status Date / Time No Known Allergies Allergy Verified 05/25/23 13:04 Worker's Comp Is this a Worker's Comp case?: No [facility] Disclaimer: The information contained in this section may have been updated after the patient was seen, as this information can be updated by other users. Medical History (Updated 03/18/24 @ 14:39 by Constantino Coello APRN) History of gastroesophageal reflux (GERD) Surgical History (Updated 03/18/24 @ 13:58 by Daniela Collins RN) History of cholecystectomy Social History , LOW) Smoking Status: Current every day smoker tobacco type: cigarettes packs per day: 1 second hand exposure: Yes alcohol intake: never substance use type: denies use current occupational status: employed household members: significant other housing: house current occupation: [employer] current occupational exposures/hazards: No caffeine: Yes ROS Obtained: Yes All systems reviewed & no additional complaints except as documented Constitutional Constitutional: Reports chills and Reports fever(s) Eyes Eyes: Denies eye discharge ENT Ears, Nose, Mouth, and Throat: Reports as per HPI Cardiovascular Cardiovascular: Denies chest pain Respiratory Respiratory: Denies chest congestion and Reports cough Gastrointestinal Gastrointestingal: Reports nausea; Denies abdominal pain, constipation, cramping, diarrhea or vomiting Musculoskeletal Musculoskeletal: Denies arthralgias Integumentary/Breasts Skin/Breast: Denies rash Neurologic Neurologic: Denies paresthesias Physical Exam General General appearance: alert and in no apparent distress Head Head exam: atraumatic, normocephalic and normal inspection Eye Eye exam: Present normal appearance, PERRL and EOMI ENT ENT exam: Present mucous membranes moist and normal external ear exam Expanded ENT Exam TM/Canal exam: Bilateral TM: erythema and bulging Nose exam: Absent sinus tenderness Mouth exam: Present normal external inspection; Absent drooling Teeth exam: Present normal inspection Throat exam: Present tonsillar erythema, tonsillomegaly and tonsillar exudate Neck Neck exam: Present normal inspection, full ROM and trachea midline; Absent tenderness, meningismus or lymphadenopathy Chest Chest inspection: Present normal inspection and symmetric chest wall rise; Absent tenderness Respiratory Respiratory exam: Present normal lung sounds bilaterally; Absent respiratory distress, wheezes or accessory muscle use Cardiovascular Cardiovascular exam: Present regular rate and normal rhythm; Absent systolic murmur or diastolic murmur Abdominal Exam Abdominal exam: Present soft and normal bowel sounds; Absent distention, tenderness, guarding, rebound or rigidity Extremities Exam Extremities exam: Present normal inspection and normal capillary refill; Absent calf tenderness Back Exam Back exam: Present normal inspection and full ROM; Absent tenderness, CVA tenderness (R) or CVA tenderness (L) Neurological Exam Neurological exam: Present alert, oriented X3 and CN II-XII intact Psychiatric Psychiatric exam: Present normal affect and normal mood Skin Skin exam: Present warm, dry, intact and normal color Medical Decision Making Medical Records Medical records reviewed: No I reviewed the patient's medical records. Screening: Per USPSTF and CDC recommendations, given the prevalence of disease in our region, it is our hospital?s policy to screen for HIV and viral Hepatitis for all patients aged 18 and over and those with ongoing risk factors. Juan Inquiry Pt receiving controlled substance: No Vital Signs: 03/18/24 13:50 Temperature 100.1 F H Temperature Source Oral Pulse Rate [Right Brachial] 107 H Respiratory Rate 17 Blood Pressure [Right Arm] 116/67 Blood Pressure Mean [Right Arm] 83 Blood Pressure Source [Right Arm] Automatic Cuff Blood Pressure Position [Right Arm] Sitting 02 Sat by Pulse Oximetry 100 Oxygen Delivery Method Room Air Lab Data Lab results reviewed: Yes I reviewed the patient's lab results. Lab Results 03/18/24 13:58: Influenza Type A Ag Positive A, Influenza Type B Ag Negative
[2024-03-18 14:40] VITALS: BP 116/67; PULSE 107; RESP 17; TEMP 37.8; O2SAT 100
== END 2024-03-18 14:42 | disposition home or self-care (01) ==
PROVIDERS: Emergency Provider Nurse Practitioner Family; PCP Internal Medicine
DX: J09.X9 Influenza due to identified novel influenza A virus with other manifestations (principal)
CPT/HCPCS: 87804; 99213; G0381